=== PATIENT | male | born 1990 | race Caucasian/White ===

== ENCOUNTER 2020-08-18 13:39 | Emergency (ER) | payer SELFPAY ==
[2020-08-18 13:40] VITALS: BP 168/112; PULSE 116; RESP 18; TEMP 36.6; O2SAT 100; BMI 47.4
[2020-08-18 13:45] VITALS: BP 173/101; PULSE 109; RESP 18; TEMP 36.6; O2SAT 100
--- NOTE | 2020-08-18 13:46 | XRR_ITS ---
PROCEDURE INFORMATION: Exam: XR Chest Exam date and time: 08/18/2020 1:46 PM Age: 30 years old Clinical indication: Other: Reduced breath sounds TECHNIQUE: Imaging protocol: XR of the chest. Views: 1 view. COMPARISON: No relevant prior studies available. FINDINGS: Lungs: Unremarkable. No consolidation. Pleural spaces: Unremarkable. No pleural effusion. No pneumothorax. Heart/Mediastinum: Unremarkable. No cardiomegaly. Bones/joints: Unremarkable. XR/XR chest 1V portable [id number] IMPRESSION: No acute findings.
--- NOTE | 2020-08-18 13:48 | ECG_ITS ---
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
[2020-08-18 14:17] VITALS: BP 148/89; PULSE 112; RESP 20; O2SAT 98
[2020-08-18] MEDS: diphenhydrAMINE 25 mg Capsule PO (14:18)
[2020-08-18] MEDS: ibuprofen 800 mg tablet PO (14:18)
--- NOTE | 2020-08-18 14:22 | W.ED.SOB ---
HPI - SOB/Dyspnea General: Chief Complaint: Shortness of Breath/Dyspnea Stated Complaint: WEAKNESS Time Seen by Provider: 08/18/20 13:40 History of Present Illness: HPI Narrative: The patient is a 30-year-old male who comes to the ER complaining of shortness of breath and not feeling well. He says he got his second Covid vaccination yesterday and he feels like he is lost his air. He says he took 4 ibuprofen at 8 this morning and 2 Tylenols approximately 1 hour prior to arrival. He is speaking in a whispering manner and says his throat initially felt tight but it feels better upon being in the ER bed. About 10 minutes after arrival he says he feels completely better and is asking for discharge. He also complains of left shoulder pain where he got the injection. He denies any past medical history. He had no problems with the first vaccination. MD elicited complaint: shortness of breath Onset (ago): hour(s) (2) Timing: constant and other (Improving) Severity: moderate Exacerbating factors: nothing Relieving factors: nothing and other (Tylenol) Associated symptoms: Deny abdominal pain, chest pain, dizziness, extremity pain, fever(s), orthopnea, palpitations or polyuria Review of Systems General: Reports: 10 or more systems reviewed and unremarkable except in HPI and below Const: Reports: chills, body aches and fatigue; Denies: fever(s) Eyes: Denies: change in vision, blurry vision or eye redness ENMT: Denies: throat pain, swelling of lips/tongue, ear or mastoid pain or nasal congestion Card: Denies: chest pain, palpitations, irregular heart rhythm, edema, dyspnea on exertion or orthopnea Resp: Reports: dyspnea; Denies: productive cough or non-productive cough GI: Denies: abdominal pain, diarrhea or GI cramping : Denies: flank pain, urinary frequency or urinary urgency Musc: Denies: neck pain, back pain, extremity pain, joint pain, joint redness, limited range of motion or muscle weakness Skin/Breast: Denies: rash, pruritus, erythema, skin pain or skin tenderness Neuro: Denies: headache(s), numbness in extremities, weakness in extremities, sensory changes, difficulty walking, dizziness, confusion or Slurred speech present Psych: Denies: anxiety or depression Endo: Denies: polyuria All/Imm: Denies: urticaria, throat swelling or tongue swelling Physical Exam Const: COMMON NORMALS: no acute distress, average body habitus, patient oriented x3, no limitations, healthy appearing, alert and well nourished GENERAL APPEARANCE: cooperative, comfortable, well kempt and well developed ORIENTATION/CONSCIOUSNESS: Yes awake, Yes oriented to person, Yes oriented to place and Yes oriented to time HENMT: COMMON NORMALS: normocephalic, external ears normal and Normal external nose present HEAD & SCALP: normal to inspection and normocephalic NOSE: Normal external nose present EXTERNAL EAR: Yes external ears normal MOUTH: Normal oral and palatal mucosa present THROAT: posterior oropharynx normal Eye: COMMON NORMALS: Equal, round and reactive pupils present and EOMs intact bilaterally GENERAL EYE: appearance normal, both eyes and all related structures PUPIL: Yes Equal, round and reactive pupils present Neck/C-Spine: COMMON NORMALS: full ROM, no lymphadenopathy, no meningeal signs and no JVD GENERAL: Yes normal visual inspection Lymph: LYMPHATIC: no lymphadenopathy noted Chest: COMMONS NORMALS: normal inspection of the chest and normal palpation of entire chest wall Resp: COMMON NORMALS: normal respiratory effort, No retractions, No use of accessory muscles, clear to auscultation bilaterally and percussion normal EFFORT & INSPECTION: Yes able to speak in complete sentences AUSCULTATION: clear to auscultation bilaterally PERCUSSION: percussion normal Cardio: COMMON NORMALS: no JVD, regular rhythm, S1 normal heart sound present, S2 normal heart sound present and Peripheral pulses 2+ throughout RATE: tachycardic RHYTHM: regular rhythm HEART SOUNDS: S1 normal heart sound present and S2 normal heart sound present PERIPHERAL PULSES: Peripheral pulses 2+ throughout GI: COMMON NORMALS: Normal to inspection, nondistended, normoactive bowel sounds present, Soft to palpation, non-tender and no masses INSPECTION: Yes normal to inspection PALPATION: Yes Soft to palpation : COMMON NORMALS: Yes no CVA tenderness BLADDER/KIDNEY EXAM: Yes no CVA tenderness Back/Pelvis: COMMON NORMALS: no CVA tenderness, thoracic and lumbar spine normal to inspection, no thoracic nor lumbar tenderness and thoraco-lumbar ROM normal Extremity: COMMON NORMALS: normal to inspection, full ROM, capillary refill normal, no joint enlargement and no pedal edema GENERAL: Yes normal exam except as noted Neuro: COMMON NORMALS: patient oriented x3, CN's II-XII intact bilaterally, moves all extremities, no focal motor deficits, no sensory deficits noted and gait normal SENSORIUM/ORIENTATION: Yes alert, Yes oriented to person, Yes oriented to place and Yes oriented to time MENINGEAL SIGNS: Yes no meningeal signs Psych: COMMON NORMALS: mental status grossly normal, Normal thought process present, cooperative, normal affect and speech normal APPEARANCE: Yes well kempt ATTITUDE: Yes calm SPEECH: Yes normal speech THOUGHT PROCESS: Normal thought process present Skin: COMMON NORMALS: no rashes or lesions noted GENERAL SKIN EXAM: no rashes or lesions noted Course Vital Signs: Vital signs: Vital Signs Temperature 98 F 08/18/20 15:17 Pulse Rate 112 H 08/18/20 15:17 Respiratory Rate 16 08/18/20 15:17 Blood Pressure 137/79 08/18/20 15:17 Pulse Oximetry 96 08/18/20 15:17 MDM - SOB/Dyspnea MDM Narrative: Medical decision making narrative: After about 10 minutes the patient complained he now feels much better and is asking for discharge. Likely the Tylenol he took about an hour before he came is kicking in and giving him some relief of his symptoms. He was initially whispering on arrival and is now speaking with a full voice and smiling. These are likely side effects from the second Covid vaccination. After initial IV attempt he refused IV. Labs and IV medications were canceled. He was given Benadryl and ibuprofen. He continues to feel fine and eventually was asking for discharge. He was discharged in stable condition. PCP in a few days to monitor improvement of symptoms. ER with worsening symptoms. Drink lots of fluids. Tylenol and ibuprofen as needed for symptoms Discharge Plan Discharge Patient Disposition: Home Clinical Impression: Fatigue after COVID-19 vaccination Condition: Stable Prescriptions: No Action Tylenol Extra Strength 500 mg Tablet 1,000 mg PO BEDTIME PRN (Reason: Pain) RF: 0 Nexium 20 mg Capsule,Delayed Release(Dr/Ec) 20 - 40 mg PO BEDTIME RF: 0 Discharge Orders: Discharge ED (Routine); Ordered 08/18/20 Ordered By: Cedric Duarte Discharge Diet: Advance as tolerated Discharge Activity: Resume usual activity Patient Instructions: Fatigue (ED), Opioid Safety Activity Restrictions/Additional Instructions: You are likely having side effects from your second Covid vaccination. Please continue to drink lots of water at home and take Tylenol and ibuprofen to help with your symptoms. Return to the ER with any worsening symptoms. Follow-up with your primary care physician in a few days to monitor improvement of your symptoms. Coding Level of Care Code ED [employer] for [employer] Exam Comprehensive
[2020-08-18 15:17] VITALS: BP 137/79; PULSE 112; RESP 16; TEMP 36.6; O2SAT 96
[2020-08-18 15:56] VITALS: BP 140/90; PULSE 101; RESP 16; TEMP 36.8; O2SAT 96
== END 2020-08-18 16:02 | disposition home or self-care (01) ==
PROVIDERS: Emergency Provider Family Medicine
DX: R53.83 Other fatigue (principal); T50.B95A Adverse effect of other viral vaccines, initial encounter
CPT/HCPCS: 71045; 93005; 99283